=== PATIENT | male | born 1995 | race Hispanic/Latino ===

== ENCOUNTER 2019-03-09 11:27 | Emergency (ER) | payer SELFPAY ==
[~2019-03-09] VITALS: Ht 177.8 cm; Wt 90.7 kg
[2019-03-09] MEDS: TETANUS/DIPHTHERIA TOX ADULT 0.5 ML SYR IM ONE (11:40)
[2019-03-09] MEDS ORDERED: TETANUS/DIPHTHERIA TOX ADULT 0.5 ML SYR ONE (11:46)
== END 2019-03-09 11:46 | disposition home or self-care (01) ==
LOC: FSED 11:27
DX: S01.01XA Laceration without foreign body of scalp, initial encounter (principal); W26.8XXA Contact with other sharp object(s), not elsewhere classified, initial encounter; Y92.008 Other place in unspecified non-institutional (private) residence as the place of occurrence of the external cause
CPT/HCPCS: 90714; 96372; 99283